=== PATIENT | male | born 1985 | race Caucasian/White ===

== ENCOUNTER 2021-04-23 00:33 | Emergency (ER) | payer BC ==
[2021-04-23] MEDS ORDERED: Glucagon,Human Recombinant 1 MG Vial IVPUSH ONE (00:58)
[2021-04-23] MEDS ORDERED: Ondansetron 4 MG/2 ML SDV ONE (01:09)
[2021-04-23] MEDS ORDERED: Ondansetron 4 MG/2 ML SDV IVPUSH ONE (01:11)
--- NOTE | 2021-04-23 01:15 | PCM.SN.2 ---
- Free Text/Narrative Note: pt seen, chart reviewed; food stuck; to OR for egd w fb extraction; rb dw pt, re bleeding/infection/perforation; pt voiced understanding; proceed to surgery. [id number]
[2021-04-23] MEDS ORDERED: Lactated Ringers 1,000 ML IV SCH (01:30)
[2021-04-23 01:53] VITALS: BP 117/64; PULSE 56
--- NOTE | 2021-04-23 02:58 | HP ---
DATE OF : 1985 PRIMARY CARE PHYSICIAN: None PCP The patient is coming from [place] for food stuck. HISTORY OF PRESENT ILLNESS: The patient is complaining about eating hot dogs and then food stuck. Cannot swallow. He is speaking and denied fevers, chills, diarrhea or nausea. PAST MEDICAL HISTORY: Significant for no diabetes, CO, CVA, hypertension, and has multiple EGD explorations and with possible perforation in the past, the last one was 6 years ago. No surgery, but was treated conservatively and healed. ALLERGIES: Please refer to nursing notes for detail. MEDICATIONS: Please refer to nursing notes for detail. SURGICAL HISTORY: EGD FAMILY HISTORY: None. SOCIAL HISTORY: Denied tobacco, alcohol abuse. PHYSICAL EXAMINATION: GENERAL: A very pleasant gentleman with clear voice and in no acute distress. HEENT: Normocephalic, atraumatic. Sclerae are anicteric. LUNGS: Clear to auscultation. HEART: Regular rate and rhythm. ABDOMEN: Soft, nondistended. No pulsating tender midline abdominal structure. No surgical scar. Nontender. IMPRESSION: Food stuck. PLAN: We will take to the operating room for EGD with foreign body extraction. Risks and benefits discussed with the patient including bleeding, infection, and perforation. The patient was understanding and concurred to proceed with surgery. JIN / CORTES /[id number]
--- NOTE | 2021-04-23 08:37 | HP ---
DATE OF : 1985 PRIMARY CARE PHYSICIAN: None PCP ADDENDUM: The patient had slight emesis after history and physical and he threw up a large piece of hot dog and since then he is able to drink water down and he also feels that the stuck is gone. I asked him 3 times, he said yes, he feels good, the stuck is gone, and he was able to drink water. Situations like that, we canceled the EGD procedure and gave him a followup appointment with me in 2 to 3 months from now. The patient can call to change appointment or change any general surgeon he so choose. He should not have any solid food for the next 2 days. He should be on liquid diet for the next 48 hours and I wrote him a script for omeprazole 20 mg p.o. daily for 1 month. JIN / CORTES /[id number]
== END 2021-04-23 01:53 | disposition home or self-care (01) ==
LOC: MW.ED 00:33
DX: Z53.21 Procedure and treatment not carried out due to patient leaving prior to being seen by health care provider (principal)
CPT/HCPCS: J1610; J2405